=== PATIENT | female | born 1995 | race Two or more races ===

== ENCOUNTER 2021-10-23 08:06 | Emergency (ER) | payer OTHER ==
[~2021-10-23] VITALS: Ht 162.6 cm; Wt 78.9 kg
[2021-10-23] MEDS ORDERED: ZITHROMAX500 MG PO (10:14)
== END 2021-10-23 10:25 | disposition home or self-care (01) ==
LOC: ER 08:06
DX: J06.9 Acute upper respiratory infection, unspecified (principal); A49.3 Mycoplasma infection, unspecified site; Z20.822 Contact with and (suspected) exposure to COVID-19

== ENCOUNTER 2022-06-14 19:46 | Emergency (ER) | payer OTHER ==
[~2022-06-14] VITALS: Ht 160 cm; Wt 77.6 kg
[~2022-06-14 19:46] MED LIST: ZITHROMAX500 MG PO
== END 2022-06-15 04:31 | disposition home or self-care (01) ==
LOC: ER 19:46
DX: K52.89 Other specified noninfective gastroenteritis and colitis (principal); R11.10 Vomiting, unspecified; A08.8 Other specified intestinal infections